=== PATIENT | female | born 1975 | race African-American/Black ===

== ENCOUNTER 2020-11-15 19:57 | Inpatient (IN) | payer OTHER, SELFPAY ==
[2020-11-15] MEDS ORDERED: Acetaminophen 500 MG TAB ONE (20:30)
[2020-11-15 21:16] LABS: #Lymphocytes 1.5 thou/uL (1.20-3.40); #Monocytes 0.2 thou/uL (0.11-0.59); #Neutrophils 3.5 thou/uL (1.40-6.50); %Basophils 0.2 % (0.0-1.0); %Eosinophils 0.3 % (0.0-10.0); %Lymphocytes 28.7 % (21.0-51.0); %Monocytes 4.1 % (0.0-10.0); %Neutrophils 66.7 % (42.0-75.0); Hemoglobin 10.4 g/dL (12.0-16.0); Mean Corpuscular HGB CONC 32.8 g/dL (32.0-36.0); Mean Corpuscular Hemoglobin 25.5 pg (27.0-31.0); Mean Corpuscular Volume 77.7 fL (78.0-98.0); Mean Platelet Volume 9.2 fL (7.4-10.4); Platelet Count 227 thou/uL (130-400); RBC Distribution Width 14.6 % (11.5-14.5); White Blood Cell (WBC) Count 5.3 thou/uL (4.8-10.8)
[2020-11-15 21:41] LABS: ALT (SGPT) 54 U/L (8-55); AST (SGOT) 71 U/L (5-34); Albumin 3.9 g/dL (3.5-5.0); Alkaline Phosphatase 50 U/L (40-110); Anion Gap 16 mmol/L (10-20); BUN (Urea Nitrogen) 8 mg/dL (7.0-18.7); Bilirubin, Total 0.3 mg/dL (0.2-1.2); CK (CPK) 80 U/L (29-168); Calc. Creatinine Clearance 0 mL/min (70-130); Calcium 8.4 mg/dL (7.8-10.44); Carbon Dioxide 22 mmol/L (22-29); Chloride 106 mmol/L (98-107); Globulin 3.1 g/dL (2.4-3.5); Glucose 116 mg/dL (70-105); Potassium 3.5 mmol/L (3.5-5.1); Sodium 140 mmol/L (136-145)
[2020-11-15 22:26] LABS: SARS-CoV-2 NAA Rapid Test DETECTED (NotDetected)
[2020-11-15] MEDS ORDERED: Dexamethasone 4 MG TAB ONE (22:57)
[2020-11-15] MEDS ORDERED: Enoxaparin Sodium 100 MG/ML SYRINGE ONE (22:57)
[2020-11-15] MEDS ORDERED: Enoxaparin Sodium 30 MG/0.3 ML SYRINGE ONE (22:57)
[2020-11-16 01:42] VITALS: BMI 48.0
[2020-11-16] MEDS ORDERED: Ondansetron PF 4 MG/2 ML Vial IVP PRN (02:44)
[2020-11-16] MEDS ORDERED: Albuterol Sulfate 2.5 mg/3 ml Neb NEB PRN (02:47)
[2020-11-16] MEDS ORDERED: Vancomycin HCl 1.75 GM in Sodium Chloride 0.9% 500 ML IVPB SCH (05:00)
[2020-11-16 06:38] LABS: #Monocytes 0.1 thou/uL (0.11-0.59); #Neutrophils 4.4 thou/uL (1.40-6.50); %Basophils 0.1 % (0.0-1.0); %Eosinophils 0.1 % (0.0-10.0); %Lymphocytes 18.2 % (21.0-51.0); %Neutrophils 79.5 % (42.0-75.0); Hemoglobin 10.9 g/dL (12.0-16.0); Mean Corpuscular HGB CONC 31.7 g/dL (32.0-36.0); Mean Corpuscular Volume 78.9 fL (78.0-98.0); Mean Platelet Volume 9.5 fL (7.4-10.4); Platelet Count 245 thou/uL (130-400); RBC Distribution Width 14.6 % (11.5-14.5); Red Blood Cell (RBC) Count 4.36 mill/uL (4.20-5.40); White Blood Cell (WBC) Count 5.5 thou/uL (4.8-10.8)
[2020-11-16 07:01] LABS: ALT (SGPT) 57 U/L (8-55); AST (SGOT) 65 U/L (5-34); Albumin 4.1 g/dL (3.5-5.0); Alkaline Phosphatase 54 U/L (40-110); Anion Gap 12 mmol/L (10-20); BUN (Urea Nitrogen) 7 mg/dL (7.0-18.7); Bilirubin, Direct 0.1 mg/dL (0.1-0.3); Bilirubin, Total 0.3 mg/dL (0.2-1.2); Calc. Creatinine Clearance 173 mL/min (70-130); Calcium 8.9 mg/dL (7.8-10.44); Carbon Dioxide 26 mmol/L (22-29); Chloride 104 mmol/L (98-107); Glucose 253 mg/dL (70-105); Potassium 3.6 mmol/L (3.5-5.1); Protein, Total 7.5 g/dL (6.0-8.3); Sodium 138 mmol/L (136-145)
[2020-11-16] MEDS: Dexamethasone 4 mg/ml Vial SLOW IVP SCH (08:58)
[2020-11-16] MEDS: Losartan 25 MG TAB PO SCH (08:59)
[2020-11-16] MEDS: Ascorbic Acid 500 mg Chewable Tablet PO SCH (08:59)
[2020-11-16] MEDS: Hydrochlorothiazide 25 MG TAB PO SCH (08:59)
[2020-11-16] MEDS: Zinc Sulfate 220 MG CAP PO SCH (08:59)
[2020-11-16] MEDS ORDERED: REMDESIVIR (EUA) 200 MG in Sodium Chloride 0.9% 250 ML 210 ML IV SCH (09:00)
[2020-11-16] MEDS: SULFACETAMIDE FS SCH ×2 (22:52→22:53)
[2020-11-16] MEDS: PREDNISOLONE FS SCH ×2 (22:52→22:53)
[2020-11-17 07:29] LABS: #Lymphocytes 1.7 thou/uL (1.20-3.40); #Monocytes 0.7 thou/uL (0.11-0.59); #Neutrophils 7.4 thou/uL (1.40-6.50); %Eosinophils 0.1 % (0.0-10.0); %Monocytes 7.1 % (0.0-10.0); %Neutrophils 75.9 % (42.0-75.0); Hemoglobin 10.3 g/dL (12.0-16.0); Mean Corpuscular HGB CONC 31.5 g/dL (32.0-36.0); Mean Corpuscular Hemoglobin 24.3 pg (27.0-31.0); Mean Corpuscular Volume 77.3 fL (78.0-98.0); Mean Platelet Volume 9.1 fL (7.4-10.4); Platelet Count 315 thou/uL (130-400); RBC Distribution Width 14.6 % (11.5-14.5); Red Blood Cell (RBC) Count 4.23 mill/uL (4.20-5.40); White Blood Cell (WBC) Count 9.8 thou/uL (4.8-10.8)
[2020-11-17 07:48] LABS: Anion Gap 13 mmol/L (10-20); BUN (Urea Nitrogen) 8 mg/dL (7.0-18.7); Calc. Creatinine Clearance 184 mL/min (70-130); Calcium 8.7 mg/dL (7.8-10.44); Carbon Dioxide 25 mmol/L (22-29); Chloride 104 mmol/L (98-107); Glucose 150 mg/dL (70-105); Potassium 3.3 mmol/L (3.5-5.1); Sodium 139 mmol/L (136-145)
[2020-11-17 07:49] LABS: ALT (SGPT) 42 U/L (8-55); AST (SGOT) 42 U/L (5-34); Albumin 3.8 g/dL (3.5-5.0); Alkaline Phosphatase 50 U/L (40-110); Bilirubin, Direct 0.1 mg/dL (0.1-0.3); Bilirubin, Total 0.3 mg/dL (0.2-1.2)
[2020-11-17] MEDS ORDERED: Potassium Chloride 20 MEQ TAB PO SCH (08:45)
[2020-11-17] MEDS: Hydrochlorothiazide 25 MG TAB PO SCH (08:55)
[2020-11-17] MEDS: Losartan 25 MG TAB PO SCH (08:55)
[2020-11-17] MEDS: Zinc Sulfate 220 MG CAP PO SCH (08:56)
[2020-11-17] MEDS: Acetaminophen 325 MG TAB PO PRN (08:56)
[2020-11-17] MEDS: Ascorbic Acid 500 mg Chewable Tablet PO SCH (08:56)
[2020-11-17] MEDS: Dexamethasone 4 mg/ml Vial SLOW IVP SCH (08:56)
[2020-11-17] MEDS: SULFACETAMIDE FS SCH ×3 (08:57→20:41)
[2020-11-17] MEDS: PREDNISOLONE FS SCH ×3 (08:57→20:41)
[2020-11-17] MEDS: REMDESIVIR (EUA) 100 MG in Sodium Chloride 0.9% 250 ML 230 ML IV SCH (08:58)
[2020-11-17] MEDS ORDERED: Enoxaparin Sodium 40 MG/0.4 ML SYRINGE SC SCH (09:00)
[2020-11-17] MEDS: Enoxaparin Sodium 40 MG/0.4 ML SYRINGE SC SCH (20:40)
[2020-11-18 05:53] LABS: #Basophils 0.1 thou/uL (0.0-0.2); #Neutrophils 5.7 thou/uL (1.40-6.50); %Basophils 0.9 % (0.0-1.0); %Eosinophils 0.1 % (0.0-10.0); %Monocytes 11.1 % (0.0-10.0); Hemoglobin 10.4 g/dL (12.0-16.0); Mean Corpuscular HGB CONC 31.3 g/dL (32.0-36.0); Mean Corpuscular Hemoglobin 24.6 pg (27.0-31.0); Mean Corpuscular Volume 78.5 fL (78.0-98.0); Mean Platelet Volume 8.5 fL (7.4-10.4); Platelet Count 358 thou/uL (130-400); RBC Distribution Width 14.5 % (11.5-14.5); Red Blood Cell (RBC) Count 4.23 mill/uL (4.20-5.40); White Blood Cell (WBC) Count 8.8 thou/uL (4.8-10.8)
[2020-11-18 06:13] LABS: Anion Gap 13 mmol/L (10-20); BUN (Urea Nitrogen) 10 mg/dL (7.0-18.7); Calc. Creatinine Clearance 189 mL/min (70-130); Calcium 8.7 mg/dL (7.8-10.44); Carbon Dioxide 27 mmol/L (22-29); Chloride 102 mmol/L (98-107); Glucose 126 mg/dL (70-105); Potassium 3.6 mmol/L (3.5-5.1); Sodium 138 mmol/L (136-145)
[2020-11-18] MEDS: Losartan 25 MG TAB PO SCH (08:42)
[2020-11-18] MEDS: Hydrochlorothiazide 25 MG TAB PO SCH ×2 (08:43→10:22)
[2020-11-18] MEDS: Zinc Sulfate 220 MG CAP PO SCH (08:43)
[2020-11-18] MEDS: Ascorbic Acid 500 mg Chewable Tablet PO SCH (08:43)
[2020-11-18] MEDS: Dexamethasone 4 mg/ml Vial SLOW IVP SCH (08:43)
[2020-11-18] MEDS: PREDNISOLONE FS SCH ×3 (08:44→21:47)
[2020-11-18] MEDS: SULFACETAMIDE FS SCH ×3 (08:44→21:47)
[2020-11-18] MEDS: Enoxaparin Sodium 40 MG/0.4 ML SYRINGE SC SCH ×2 (08:44→20:43)
[2020-11-18] MEDS: Acetaminophen 325 MG TAB PO PRN (08:44)
[2020-11-18] MEDS: REMDESIVIR (EUA) 100 MG in Sodium Chloride 0.9% 250 ML 230 ML IV SCH (09:51)
[2020-11-18] MEDS ORDERED: Dextrose 5% in Water 1,000 ML IV PRN (17:45)
[2020-11-18] MEDS ORDERED: Dextrose 50% Abboject 50 ML SYRINGE IVP PRN (17:45)
[2020-11-18] MEDS: HumaLOG 300 UNITS/3 ML VIAL SC PRN ×2 (17:49→21:49)
[2020-11-19] MEDS: Losartan 25 MG TAB PO SCH (09:09)
[2020-11-19] MEDS: Dexamethasone 4 mg/ml Vial SLOW IVP SCH (09:09)
[2020-11-19] MEDS: Zinc Sulfate 220 MG CAP PO SCH (09:09)
[2020-11-19] MEDS: Hydrochlorothiazide 25 MG TAB PO SCH ×2 (09:10→10:24)
[2020-11-19] MEDS: Ascorbic Acid 500 mg Chewable Tablet PO SCH (09:10)
[2020-11-19] MEDS: Enoxaparin Sodium 40 MG/0.4 ML SYRINGE SC SCH ×2 (09:12→20:22)
[2020-11-19] MEDS: SULFACETAMIDE FS SCH ×3 (09:13→20:24)
[2020-11-19] MEDS: PREDNISOLONE FS SCH ×3 (09:13→20:24)
[2020-11-19] MEDS ORDERED: Benzonatate 100 MG CAP PO PRN (10:15)
[2020-11-19] MEDS ORDERED: Loperamide HCl 2 MG CAP PO PRN (10:15)
[2020-11-19] MEDS ORDERED: Metoclopramide HCl 10 MG/2 ML VIAL IVP PRN (10:15)
[2020-11-19] MEDS ORDERED: Calcium Carbonate 500 MG ChewTAB PO PRN (10:15)
[2020-11-19] MEDS ORDERED: Cepastat Lozenges 1 LOZ PO PRN (10:15)
[2020-11-19] MEDS ORDERED: Loratadine 10 MG TAB PO PRN (10:15)
[2020-11-19] MEDS ORDERED: HYDROcodone/Acetaminophen 5/325 mg Tablet PO PRN (10:15)
[2020-11-19] MEDS ORDERED: GUAIFENESIN SF SOLN 200 MG/10 ML UDCUP PO PRN (10:15)
[2020-11-19] MEDS ORDERED: Senokot S 8.6-50 MG TAB PO PRN (10:15)
[2020-11-19] MEDS ORDERED: Sodium Chloride 0.65% Nasal 44 ML BOT EA NARE PRN (10:15)
[2020-11-19] MEDS ORDERED: Bisacodyl 5 MG TAB PO PRN (10:15)
[2020-11-19] MEDS ORDERED: Albuterol Sulfate 2.5 mg/3 ml Neb NEB PRN (10:17)
[2020-11-19] MEDS ORDERED: Albuterol 200 PUFF (6.7GM INHALER) INH PRN (10:22)
[2020-11-19] MEDS: REMDESIVIR (EUA) 100 MG in Sodium Chloride 0.9% 250 ML 230 ML IV SCH (10:22)
[2020-11-19] MEDS: HumaLOG 300 UNITS/3 ML VIAL SC PRN ×3 (11:35→20:24)
[2020-11-19] MEDS: hydrALAZINE 20 MG/ML VIAL SLOW IVP PRN (17:00)
[2020-11-19] MEDS: Acetaminophen 325 MG TAB PO PRN (21:55)
[2020-11-19] MEDS: Zolpidem Tartrate 5 MG TAB PO PRN (21:55)
[2020-11-20 06:30] LABS: #Lymphocytes 3.2 thou/uL (1.20-3.40); #Monocytes 1.2 thou/uL (0.11-0.59); #Neutrophils 6.1 thou/uL (1.40-6.50); %Basophils 0.4 % (0.0-1.0); %Eosinophils 0.2 % (0.0-10.0); %Monocytes 11.5 % (0.0-10.0); %Neutrophils 57.8 % (42.0-75.0); Mean Corpuscular HGB CONC 31.5 g/dL (32.0-36.0); Mean Corpuscular Hemoglobin 24.7 pg (27.0-31.0); Mean Corpuscular Volume 78.7 fL (78.0-98.0); Mean Platelet Volume 8.2 fL (7.4-10.4); Platelet Count 433 thou/uL (130-400); RBC Distribution Width 14.4 % (11.5-14.5); Red Blood Cell (RBC) Count 4.02 mill/uL (4.20-5.40); White Blood Cell (WBC) Count 10.5 thou/uL (4.8-10.8)
[2020-11-20 06:48] LABS: ALT (SGPT) 21 U/L (8-55); AST (SGOT) 18 U/L (5-34); Albumin 3.4 g/dL (3.5-5.0); Alkaline Phosphatase 42 U/L (40-110); Anion Gap 14 mmol/L (10-20); BUN (Urea Nitrogen) 12 mg/dL (7.0-18.7); Bilirubin, Total 0.3 mg/dL (0.2-1.2); CRP (Inflammatory) 4.05 mg/dL (= or < 0.5); Calc. Creatinine Clearance 197 mL/min (70-130); Calcium 8.8 mg/dL (7.8-10.44); Carbon Dioxide 28 mmol/L (22-29); Chloride 103 mmol/L (98-107); Globulin 3.2 g/dL (2.4-3.5); Glucose 127 mg/dL (70-105); Potassium 3.6 mmol/L (3.5-5.1); Protein, Total 6.6 g/dL (6.0-8.3); Sodium 141 mmol/L (136-145)
[2020-11-20] MEDS: Ascorbic Acid 500 mg Chewable Tablet PO SCH (08:57)
[2020-11-20] MEDS: Losartan 25 MG TAB PO SCH (08:58)
[2020-11-20] MEDS: Hydrochlorothiazide 25 MG TAB PO SCH (08:58)
[2020-11-20] MEDS: Zinc Sulfate 220 MG CAP PO SCH (08:59)
[2020-11-20] MEDS: Dexamethasone 4 mg/ml Vial SLOW IVP SCH (08:59)
[2020-11-20] MEDS: SULFACETAMIDE FS SCH ×3 (09:00→21:31)
[2020-11-20] MEDS: PREDNISOLONE FS SCH ×3 (09:00→21:31)
[2020-11-20] MEDS: Enoxaparin Sodium 40 MG/0.4 ML SYRINGE SC SCH ×2 (09:00→21:30)
[2020-11-20] MEDS: REMDESIVIR (EUA) 100 MG in Sodium Chloride 0.9% 250 ML 230 ML IV SCH (10:50)
[2020-11-20] MEDS: HumaLOG 300 UNITS/3 ML VIAL SC PRN (17:26)
[2020-11-20] MEDS: Zolpidem Tartrate 5 MG TAB PO PRN (21:30)
[2020-11-21 06:16] LABS: #Lymphocytes 3.7 thou/uL (1.20-3.40); #Monocytes 1.3 thou/uL (0.11-0.59); #Neutrophils 6.6 thou/uL (1.40-6.50); %Eosinophils 0.4 % (0.0-10.0); %Lymphocytes 31.5 % (21.0-51.0); %Monocytes 11.2 % (0.0-10.0); %Neutrophils 56.9 % (42.0-75.0); Mean Corpuscular Volume 77.5 fL (78.0-98.0); Mean Platelet Volume 8.1 fL (7.4-10.4); Platelet Count 491 thou/uL (130-400); RBC Distribution Width 14.3 % (11.5-14.5); Red Blood Cell (RBC) Count 4.16 mill/uL (4.20-5.40); White Blood Cell (WBC) Count 11.6 thou/uL (4.8-10.8)
[2020-11-21 06:56] LABS: Anion Gap 14 mmol/L (10-20); BUN (Urea Nitrogen) 11 mg/dL (7.0-18.7); Calc. Creatinine Clearance 197 mL/min (70-130); Calcium 8.5 mg/dL (7.8-10.44); Carbon Dioxide 27 mmol/L (22-29); Chloride 101 mmol/L (98-107); Glucose 124 mg/dL (70-105); Potassium 3.5 mmol/L (3.5-5.1); Sodium 138 mmol/L (136-145)
[2020-11-21 07:53] VITALS: TEMP 98.5
[2020-11-21] MEDS: Dexamethasone 4 mg/ml Vial SLOW IVP SCH (08:47)
[2020-11-21] MEDS: Hydrochlorothiazide 25 MG TAB PO SCH (08:48)
[2020-11-21] MEDS: Enoxaparin Sodium 40 MG/0.4 ML SYRINGE SC SCH (08:48)
[2020-11-21] MEDS: Zinc Sulfate 220 MG CAP PO SCH (08:48)
[2020-11-21] MEDS: Ascorbic Acid 500 mg Chewable Tablet PO SCH (08:48)
[2020-11-21] MEDS: Losartan 25 MG TAB PO SCH (08:48)
[2020-11-21] MEDS: PREDNISOLONE FS SCH ×2 (08:49→14:58)
[2020-11-21] MEDS: SULFACETAMIDE FS SCH ×2 (08:49→14:58)
[2020-11-21] MEDS: HumaLOG 300 UNITS/3 ML VIAL SC PRN (12:11)
[2020-11-21] MEDS: hydrALAZINE 20 MG/ML VIAL SLOW IVP PRN (12:11)
[2020-11-21 15:38] VITALS: BP 146/88
== END 2020-11-21 16:25 | disposition home or self-care (01) | DRG 177 ==
LOC: ERS 19:57 → T4-A 22:53
PROVIDERS: ADMIT Internal Medicine; ATTEND Internal Medicine
PROC: 8E0ZXY6 Isolation (ICD-10-PCS; 2020-11-15)
PROC: XW033E5 Introduction of Remdesivir Anti-infective into Peripheral Vein, Percutaneous Approach, New Technology Group 5 (ICD-10-PCS; principal; 2020-11-16)
DX: U07.1 COVID-19 (principal); J12.82 Pneumonia due to coronavirus disease 2019; J96.01 Acute respiratory failure with hypoxia; Z68.42 Body mass index [BMI] 45.0-49.9, adult; I10 Essential (primary) hypertension; J45.909 Unspecified asthma, uncomplicated; K21.9 Gastro-esophageal reflux disease without esophagitis; R73.03 Prediabetes; E66.01 Morbid (severe) obesity due to excess calories; D64.9 Anemia, unspecified; Z98.51 Tubal ligation status; Z88.8 Allergy status to other drugs, medicaments and biological substances; Z79.899 Other long term (current) drug therapy
CPT/HCPCS: 0240U; 36415; 36416; 71045; 80048; 80053; 80076; 82550; 82728; 83605; 84484; 85025; 85379; 86140; 87040; 93005; 96372; J0360; J1100; J1650; J1815; J7050; J8540

== ENCOUNTER 2022-04-21 19:32 | Emergency (ER) | payer OTHER, SELFPAY ==
[~2022-04-21 19:32] MED LIST: Iopamidol-370 76% 500 ML 1 ML ONE
[2022-04-21 20:23] LABS: BHCG - Serum Negative (NEGATIVE); Pregs Control Background? CLEAR/WHITE (CLR/WHITE); Pregs Control Bar Appear? YES (CONTROL BAR)
[2022-04-21 20:38] LABS: ALT (SGPT) 12 U/L (8-55); AST (SGOT) 12 U/L (5-34); Albumin 4.3 g/dL (3.5-5.0); Alkaline Phosphatase 66 U/L (40-110); Anion Gap 14 mmol/L (10-20); BUN (Urea Nitrogen) 12 mg/dL (7.0-18.7); Bilirubin, Total 0.4 mg/dL (0.2-1.2); Calc. Creatinine Clearance 0 mL/min (70-130); Calcium 9.4 mg/dL (7.8-10.44); Carbon Dioxide 22 mmol/L (22-29); Chloride 107 mmol/L (98-107); Estimated GFR 89; Globulin 3.2 g/dL (2.4-3.5); Glucose 127 mg/dL (70-105); Lipase 15 U/L (8-78); Potassium 4.3 mmol/L (3.5-5.1); Protein, Total 7.5 g/dL (6.0-8.3); Sodium 139 mmol/L (136-145)
[2022-04-21 20:42] LABS: Bilirubin Negative (Negative); Blood, Urine Negative (Negative); Glucose, Urine (Dipstick) Normal (Negative); Ketone, Urine Negative (Negative); Leukocyte 75 Leu/uL (Negative); Nitrite Negative (Negative); Protein, Urine (Dipstick) 10 mg/dL (Neg-Trace); RBC/HPF None Seen HPF (0-3); Specific Gravity, Urine 1.028 (1.002-1.036); pH, Urine 5.5 (5.0-9.0)
[2022-04-21 20:43] LABS: Bacteria/HPF 1+ HPF (None Seen); Clarity Cloudy (Clear)
[2022-04-21 20:46] LABS: Hemoglobin 8.1 g/dL (12.0-16.0); Mean Corpuscular HGB CONC 29.5 g/dL (32.0-36.0); Mean Corpuscular Hemoglobin 20.6 pg (27.0-31.0); Mean Corpuscular Volume 69.7 fl (78.0-98.0); Mean Platelet Volume 10.2 fL (7.4-10.4); Platelet Count 389 thou/uL (130-400); RBC Distribution Width 16.9 % (11.5-14.5); Red Blood Cell (RBC) Count 3.92 mill/uL (4.20-5.40); White Blood Cell (WBC) Count 11.9 thou/uL (4.8-10.8)
[2022-04-21 21:14] LABS: #Basophils 0.1 thou/uL (0.0-0.2); #Eosinphils 0.2 thou/uL (0.0-0.7); #Lymphocytes 2.2 thou/uL (1.20-3.40); #Monocytes 0.6 thou/uL (0.11-0.59); #Neutrophils 8.8 thou/uL (1.40-6.50); %Basophils 0.9 % (0.0-1.0); %Eosinophils 1.7 % (0.0-10.0); %Lymphocytes 18.1 % (21.0-51.0); %Monocytes 5.2 % (0.0-10.0); Hypochromia SLIGHT = 6-15 cells (100X) (0-5/hpf); MDiff Complete? YES; Microcytosis SLIGHT = 6-15 cells (100X) (0-5/hpf)
[2022-04-22] MEDS ORDERED: Morphine 4 MG/ML VIAL ONE ×2 (00:15→02:51)
[2022-04-22] MEDS ORDERED: Ondansetron PF 4 MG/2 ML Vial ONE (00:15)
[2022-04-22 01:48] LABS: SARS-CoV-2 NAA Rapid Test Not Detected (NotDetected)
== END 2022-04-22 03:00 | disposition short-term general hospital (02) ==
LOC: ERS 19:32
DX: R18.8 Other ascites (principal); D64.9 Anemia, unspecified; I10 Essential (primary) hypertension; K21.9 Gastro-esophageal reflux disease without esophagitis; Z79.899 Other long term (current) drug therapy; Z20.822 Contact with and (suspected) exposure to COVID-19
CPT/HCPCS: 36415; 74177; 76705; 80053; 81003; 81015; 83690; 84703; 85025; 93005; 96374; 96375; 96376; J2270; J2405; Q9967; U0002